=== PATIENT | female | born 1950 | race Caucasian/White ===

== ENCOUNTER → 2016-05-28 | Outpatient (CLI) | payer BC ==
--- NOTE | 2016-05-29 13:58 | MAMMOGRAPHY REPORT ---
BILATERAL DIGITAL SCREENING MAMMOGRAM TOMOSYNTHESIS WITH CAD: 05/28/2016 CLINICAL HISTORY: Routine screening examination. TECHNIQUE: Breast tomosynthesis in addition to standard 2D mammography was performed. Current study was also evaluated with a Computer Aided Detection (CAD) system. COMPARISON: Comparison is made to exams dated: 05/26/2015 mammogram, 03/10/2014 mammogram, 03/09/2013 mammogram, 03/23/2014 mammogram, 03/22/2013 mammogram - [facility], and 05/22/2007. BREAST COMPOSITION: There are scattered areas of fibroglandular density in both breasts. FINDINGS: There are scattered and grouped benign-appearing round and punctate microcode calcificati ons throughout the breasts. Stable nodularity in the anterior subareolar left breast. No new suspi cious mass, architectural distortion or cluster of microcalcifications is seen. IMPRESSION: ACR BI-RADS CATEGORY 1: NEGATIVE There is no mammographic evidence of malignancy. A 1 year screening mammogram is recommended. The p atient will receive written notification of the results. Approximately 10% of breast cancers are not detected with mammography. A negative mammographic repor t should not delay biopsy if a clinically suggestive mass is present. Ximena Black M.D. ay/:05/28/2016 16:30:47 Shooter'S Helper: Sarah ALANIZ)(Didier), [facility] letter sent: Normal 1/2 BI-RADS Code: ACR BI-RADS Category 1: Negative
== END | disposition home or self-care (01) ==
LOC: C.MAMM 15:22
PROVIDERS: ATTEND Family Medicine
DX: Z12.31 Encounter for screening mammogram for malignant neoplasm of breast (principal)

== ENCOUNTER → 2017-06-23 | Outpatient (CLI) | payer OTHER ==
--- NOTE | 2017-06-24 13:28 | MAMMOGRAPHY REPORT ---
BILATERAL DIGITAL SCREENING MAMMOGRAM TOMOSYNTHESIS WITH CAD: 06/23/2017 CLINICAL HISTORY: Routine screening. TECHNIQUE: Breast tomosynthesis in addition to standard 2D mammography was performed. Current study was also evaluated with a Computer Aided Detection (CAD) system. COMPARISON: Comparison is made to exams dated: 05/28/2016 mammogram, 05/26/2015 mammogram, 10/26/2014 ma mmogram, 03/10/2014 mammogram, 03/09/2013 mammogram - [facility], and 05/22/2007. BREAST COMPOSITION: There are scattered areas of fibroglandular density in both breasts. FINDINGS: There is a 6 mm focal asymmetry with possible associated architectural distortion in the u pper outer posterior right breast, for which additional spot compression tomosynthesis views and poss ible ultrasound is recommended. There is stable nodularity in the anterior aspect of each breast and scattered benign-appearing calci fications bilaterally. No other suspicious mass, architectural distortion or cluster of microcalcifications is seen. IMPRESSION: ACR BI-RADS CATEGORY 0: INCOMPLETE EVALUATION: NEED ADDITIONAL IMAGING EVALUATION The 6 mm focal asymmetry with possible associated architectural distortion in the upper outer posteri or right breast needs additional evaluation. The patient will be called to schedule an appointment. Approximately 10% of breast cancers are not detected with mammography. A negative mammographic report should not delay biopsy if a clinically suggestive mass is present. Ximena Black M.D. ay/:06/23/2017 16:49:41 Plastics Design Engineer: Malorie GARY(Eben)(Didier), [facility] letter sent: Addl Imaging 0 BI-RADS Code: ACR BI-RADS Category 0: Incomplete Evaluation: Need Additional Imaging Evaluation
== END | disposition home or self-care (01) ==
LOC: C.MAMM 14:57
PROVIDERS: ATTEND Family Medicine
DX: Z12.31 Encounter for screening mammogram for malignant neoplasm of breast (principal); N64.89 Other specified disorders of breast

== ENCOUNTER → 2017-06-30 | Outpatient (CLI) | payer OTHER ==
--- NOTE | 2017-06-30 15:20 | MAMMOGRAPHY REPORT ---
UNILATERAL RIGHT DIGITAL DIAGNOSTIC MAMMOGRAM TOMOSYNTHESIS AND TARGETED RIGHT ULTRASOUND: 06/30/2017 CLINICAL HISTORY: 67-year-old woman called back from screening mammography for a 6 mm focal asymmetry in the upper outer posterior right breast. Strong family history of breast cancer = sister, mother, maternal aunt, maternal grandmother. TECHNIQUE: Spot compression right CC and MLO 2-D and tomosynthesis images were obtained. COMPARISON: Comparison is made to exams dated: 06/23/2017 mammogram, 05/28/2016 mammogram, 05/26/2015 guerda mogram, 10/26/2014 mammogram, 03/23/2014 ultrasound, and 03/23/2014 mammogram - [facility]. BREAST COMPOSITION: There are scattered areas of fibroglandular density in the right breast. FINDINGS: The additional spot compression tomosynthesis views of the right breast demonstrate a pers istent subtle mixed density focal asymmetry measuring 7 x 5 x 5 mm in the upper outer posterior right breast. Possible associated architectural distortion on the spot compression MLO view. No associat ed microcalcification. Further characterization with ultrasound was performed. Targeted ultrasound was performed in the right upper outer quadrant. In the 10:00 axis approximately 10 cm from the nipple, there is a subtle textural difference in the tissues that is mixed echogenici ty both hyper and hypoechoic with possible posterior shadowing. Accurate ultrasound measurements are difficult to obtain given the indistinct nature of this lesion but it measures approximately 5.2 mm. This is thought to correlate with the focal mammographic asymmetry and is indeterminate. Definitiv e characterization with an ultrasound-guided core biopsy is recommended. IMPRESSION: ACR BI-RADS CATEGORY 4: SUSPICIOUS, TARGETED ULTRASOUND ACR BI-RADS CATEGORY 4: SUSPICIO US 1. Ultrasound guided core biopsy is recommended for a subtle mixed echogenicity 5 mm mass in the 10: 00 right breast, 10 cm from the nipple, which correlates with the mammographic finding. These results and recommendations were discussed with the patient at the time of the exam. She tenta tively scheduled the biopsy prior to leaving our department. Approximately 10% of breast cancers are not detected with mammography. A negative mammographic report should not delay biopsy if a clinically suggestive mass is present. Ximena Black M.D. ay/:06/30/2017 14:53:26 Production Gear Cutter: Christine Huerta [facility] letter sent: Abnormal 08/21 BI-RADS Code: ACR BI-RADS Category 4: Suspicious Ultrasound BI-RADS: ACR BI-RADS Category 4: Suspici ous
== END | disposition home or self-care (01) ==
LOC: C.MAMM 14:01
PROVIDERS: ATTEND Family Medicine
DX: N63.10 Unspecified lump in the right breast, unspecified quadrant (principal)

== ENCOUNTER → 2017-07-07 | Outpatient (CLI) | payer OTHER ==
--- NOTE | 2017-07-07 13:41 | Discharge Instructions ---
Discharge Instructions Procedure Procedure Date: Jul 07, 2017. Reason for visit: Right Breast Mass. Discharge Discharge Date: Jul 07, 2017. Discharge Diagnosis: post right breast ultrasound guided core biopsy Instructions Activity Recommendations: Additional Limitations (see below) Return to School/Work: no limitations Recommended Home Diet: No Limitations Provider Instructions: ACTIVITY RECOMMENDATIONS: * No lifting, pushing, pulling or exercising the affected side for three days. RETURN TO SCHOOL/WORK: * You may return to work/school after the procedure, but do not perform any strenuous activities for 24 to 48 hours. MEDICATIONS: * Tylenol (two 325 mg) every four to six hours if needed for mild pain (if not allergic to Tylenol). DIET: * Resume previous diet. SPECIAL CARE INSTRUCTIONS: * Keep biopsy site dry for 24 hours. May shower after 24 hours, but do not soak (bathe) incision. * May remove Tegaderm (plastic patch) tomorrow AFTER showering. * Leave the steri-strips on for one week. Allow the steri-strips to fall off by themselves. If not off after one week, you may remove them. You may place a Bandaid crosswise over the strips, if desired. * Apply ice 10 minutes on and 10 minutes off as needed. * Wear a bra at bedtime to sleep more comfortably for 2-3 days. * Your referring physician should have the results after approximately 5 to 7 business days. * Call for unusual bleeding, fever, drainage, etc or if you have any questions call [phone] during normal business hours or after hours call Dr Black, . FOLLOW UP VISIT: Follow-up with Referring Physician as scheduled. [facility] Recommendations: Call your doctor if: * Temperature above 101 degrees * Pain not relieved by pain medicine ordered * There is increased drainage or redness from any incision * You have any unanswered questions or concerns. Your Doctors Instructions noted above were prepared by provider Ximena Black. Patient Signature Section: Patient Instructions Signature Page Hannah Guallpabin Patient (or Guardian) Signature/Date: I have read and understand the instructions given to me by my caregivers. Caregiver/RN/Doctor Signature/Date: The above-named patient and/or guardian has received patient instructions on this date. + Original Patient Signature Page (only) stays with chart. Please make copy for patient.
--- NOTE | 2017-07-07 14:51 | MAMMOGRAPHY REPORT ---
UNILATERAL RIGHT DIGITAL DIAGNOSTIC MAMMOGRAM TOMOSYNTHESIS: 07/07/2017 CLINICAL HISTORY: Status post ultrasound-guided core biopsy of a subtle mixed echogenicity 5 mm mass in the 10:00 right breast. Please refer to the report from right breast ultrasound-guided core biopsy performed at the same time for full detail. IMPRESSION: POST PROCEDURE IMAGING FOR MARKER PLACEMENT Please refer to the report from right breast ultrasound-guided core biopsy performed at the same time for full detail. Approximately 10% of breast cancers are not detected with mammography. A negative mammographic report should not delay biopsy if a clinically suggestive mass is present. Ximena Black M.D. ay/:07/07/2017 13:40:28 Repairer Kiln Car: Radhika ALANIZ)(M), [facility] BI-RADS Code: Post Procedure Imaging For Marker Placement
--- NOTE | 2017-07-08 15:25 | MAMMOGRAPHY REPORT ---
THIS REPORT HAS BEEN AMENDED. ULTRASOUND GUIDED BIOPSY RIGHT BREAST: 07/07/2017 CLINICAL HISTORY: Small subtle 5 mm focal asymmetry in the upper outer posterior right breast seen on recent screening mammogram, with possible sonographic correlate identified in the 10:00 right breast . Patient presents for ultrasound-guided core needle biopsy. COMPARISON: Comparison is made to exams dated: 06/30/2017 ultrasound, 06/30/2017 mammogram, 06/23/2017 m ammogram, 05/28/2016 mammogram, 05/26/2015 mammogram, and 03/10/2014 mammogram - [facility] enter. PATIENT CONSENT: The procedure, risks and benefits were discussed with the patient and informed conse nt was obtained both verbally and in writing. Specific risks to this procedure include: bleeding, in fection, puncture of adjacent structure, nontarget biopsy, sampling error, pain, metal allergy and me dication reaction. PROCEDURE DESCRIPTION: A time out was performed and the right breast was agreed as the site of biopsy . The skin was prepped and draped in the usual sterile fashion. The subtle mixed echogenicity 5 mm ma ss in the 10:00 right breast was chosen as the target for biopsy. Subcutaneous and intraparenchymal 1 % buffered lidocaine, with and without epinephrine, was administered as local anesthesia. A skin inci paulino was made. Through the incision, 5 samples were taken with a 14 gauge Achieve biopsy device. A r ibbon shaped metallic marker was placed at the biopsy site. Hemostasis was achieved after manual comp ression. The patient tolerated the procedure well and there was no immediate complication. The sampl es were sent to the pathology department in an appropriately labeled container. Postprocedure right CC and ML tomosynthesis images were obtained. A new ribbon-shaped biopsy marker clip is identified in the upper outer posterior right breast, aligning with the focal asymmetry in qu estion, confirming mammographicsonographic correlation. No significant postbiopsy hematoma. IMPRESSION: ULTRASOUND GUIDED BIOPSY Status post ultrasound-guided core biopsy of a 5 mm focal asymmetry in the upper outer posterior righ t breast, with biopsy marker clip placed at the site. The patient will receive notification of the biopsy results from her referring physician. Ximena Black M.D. ay/:07/07/2017 15:00:39 Paintings Restorer: Radhika ALANIZ)(Didier), [facility] AMENDMENT: 07/09/2017 Ximena Black M.D. Pathology results from the subtle 5 mm mixed echogenicity mass in the right 10:00 breast yielded infi ltrative duct adenocarcinoma, Cande grade 1 of 3. Estrogen and progesterone receptor positive, HER-2/cash negative. The pathology results are concordant with the imaging appearance and giving the malignant pathology, surgical consultation for excision is recommended. However, prior to definitive treatment, consider further characterization with a breast MRI, given th e subtle nature of the patient's biopsy proven carcinoma and somewhat nodular appearance of the remai nder of the parenchyma.
== END | disposition home or self-care (01) ==
LOC: C.MAMM 13:01
PROVIDERS: ATTEND Family Medicine
DX: R92.8 Other abnormal and inconclusive findings on diagnostic imaging of breast (principal); N63.10 Unspecified lump in the right breast, unspecified quadrant; C50.911 Malignant neoplasm of unspecified site of right female breast

== ENCOUNTER → 2017-12-24 | Outpatient (CLI) | payer OTHER ==
[~2017-12-24] MED LIST: ANAS1TAB7 PO; BUPR-79 PO; BUPRTAB51 PO; CHOL1000 PO; COEN75CA PO; LORA-741 PO; ROSUVASTATIN; ZOLP5TAB6 PO
[2017-12-24 15:05] VITALS: BP 105/71; PULSE 84; TEMP 36.9; O2SAT 97
--- NOTE | 2017-12-24 15:58 | Radiation Oncology Follow-Up ---
Radiation Oncology Follow-Up Date of Visit Dec 24, 2017. Reason For Visit One-month follow-up in cancer survivorship care plan Radiation Completion Date Hypofractionation 11/26/17 Diagnosis (1) Malignant neoplasm of upper-outer quadrant of right breast in female, estrogen receptor positive Status: Acute Onset Date: 07/07/2017 Histology Subtype: Invasive carcinoma Stage: l (A) Permanent Comment: Abnormal right breast mammogram Status post ultrasound-guided core needle biopsy July 07, 2017 Invasive carcinoma grade 1 Estrogen receptor positive, progesterone receptor positive, HER-2/cash negative Repeat biopsy August 15, 2017 Ductal hyperplasia Status post bilateral oncoplastic breast reduction with right partial mastectomy and sentinel lymph node biopsy September 22, 2017 Invasive carcinoma no specific type, ductal if not otherwise specified Stage pT1b pN0 Oncotype DX score of 14 Genetic testing negative Status post completion of radiation therapy November 26, 2017. She received 5130 centigrade utilizing hypo-fractionation. Last Edited By: Poornima Lew on Dec 24, 2017 15:49 History of Present Illness Ms. Cazares presented with an abnormal mammogram. 06/23/2017 --- bilateral screening mammograms --- The 6 mm focal asymmetry with possible associated architectural distortion in the upper outer posterior right breast needs additional evaluation. 06/30/2017 --- unilateral right digital diagnostic mammogram and targeted right ultrasound --- 1. Ultrasound guided core biopsy is recommended for a subtle mixed echogenicity 5 mm mass in the 10:00 right breast, 10 cm from the nipple, which correlates with the mammographic finding. 07/07/2017 --- breast, right, 10:00 lesion, ultrasound-guided core biopsy --- invasive ductal adenocarcinoma, grade 1. No lymphovascular space invasion noted. Estrogen receptor positive, progesterone receptor positive and HER-2 negative. 07/22/2017 --- genetic studies for risk assessment including BRCA1 and BRCA2 --- results are negative for BRCA1 and BRCA2. 08/04/2017 --- bilateral MRIs of breast --- finding 1: Irregular mass in the right breast is a known malignancy. Appropriate action should be taken. Finding 2: Anemia me at 10:00 region of the right breast at middle depth is suspicious. MR guided biopsy is recommended. Histology using core biopsy is recommended. Finding 3: Irregular mass in the central left breast for which an MRI guided biopsy is recommended. Histology using core biopsy is recommended. Finding 4: Oval mass in the left breast is probably benign. Follow-up in 6 months is recommended. Oval mass in the left outer quadrant of the left breast may be a lymph node. MR directed ultrasound is recommended. If ultrasound is negative, follow-up MRI is recommended. 08/15/2017 --- biopsy of left breast and biopsy of right breast based on MRI findings --- both biopsies of left breast and right breast are negative for carcinoma and only revealed fibrocystic changes with usual ductal hyperplasia and apocrine metaplasia in the left breast. 09/22/2017 --- right breast lumpectomy and sentinel lymph node biopsy followed by bilateral breast mammoplasty by Dr. London and and Dr. Galindo --- lumpectomy reveals invasive ductal carcinoma that measures 7 mm in greatest dimension, grade 1, no LVSI. Margins are uninvolved by invasive carcinoma; superior margin was initially 1 mm however was reexcised during the operation and negative subsequently. No DCIS specimen. [place] lymph node biopsy revealed 3 lymph nodes which were negative for metastatic carcinoma. pT1bN0(sn). 10/01/2017 --- Oncotype DX --- recurrence score result 14, low risk. 10/07/2017 --- radiation oncology consultation with Dr. Selin Murillo --- Dr. Murillo has referred the patient for consideration of radiation therapy closer to her home in [place], [place]. Patient has also initially been seen by Dr. Mendoza and will follow up with him regarding the role of hormonal therapy and systemic therapy. We are now seeing the patient in consultation discuss role of adjuvant radiation therapy. Interim History She has been doing well over the past month. The irritation of the skin steadily improved. She continues to have some mild swelling of the nipple. She has occasional mild discomfort. She is noted no masses or changes of the axilla. She has had no swelling of her arm. She is on anastrozole. She did not verbalize any issues with the medication. She was wondering if she could go back to her massage therapist. She was concerned about lying in the prone position and causing discomfort or irritation to the treated breast. Allergies Coded Allergies: Penicillins (Verified Allergy, Unknown, doesn't know, 10/23/17) Escitalopram (Verified Adverse Reaction, Unknown, I felt rotten on it, 10/23) Uncoded Allergies: blue cheese (Allergy, Mild, mouth itch, 10/23/17) Home Medications Scheduled Anastrozole (Anastrozole), 1 TAB PO DAILY Bupropion (Wellbutrin Sr), 150 MG PO DAILY Bupropion (Wellbutrin-Xl), 300 MG PO DAILY Cholecalciferol (Vitamin D3), 1 TAB PO DAILY Coenzyme Q10 (Ubidecarenone) (Co Q-10), 1 CAP PO DAILY Lorazepam (Ativan), 0.5 MG PO Q6H [Rouvestatin], DAILY Scheduled PRN Zolpidem Tartrate (Zolpidem Tartrate), 1 TAB PO HS PRN for Sleep Review of Systems Gastrointestinal: Symptoms: WNL Oral: Symptoms: No Problems Respiratory: Symptoms: WNL Urinary: Symptoms: WNL Skin: Symptoms: No Problems Breast: Right Upper Arm Measurement: 31.5 Right Mid Arm Measurement: 26.8 Right Wrist Measurement: 17.0 Left Upper Arm Measurement: 33.0 Left Mid Arm Measurement: 26.3 Left Wrist Measurement: 17.0 Arm Dominence: Right Additional Notes: She completed a distress management report and answer "no" to all questions other than concerns about medical treatment choices. Physical Exam Vital Signs Date Time Temp Pulse Resp B/P (MAP) Pulse Ox O2 Delivery O2 Flow Rate FiO2 12/24/17 15:05 36.9 84 16 105/71 97 ECOG Performance Status: 0 General Appearance: no apparent distress Eyes: normal inspection, EOMI ENT: normal ENT inspection, hearing grossly normal Respiratory/Chest: lungs clear, no respiratory distress, no accessory muscle use Breast: Breast examination reveals bilateral well-healed incisions. There are no masses or tenderness and no axillary adenopathy. There is slight hyperpigmentation of the lower quadrants of the right breast. There is mild swelling of the nipple. There are no areas of tenderness. There is no nipple discharge. She has no skin retractions. The breasts are symmetric. Using the [place] score cosmesis she has a good outcome. Cardiovascular: regular rate, rhythm, no gallop, no murmur Extremities: no pedal edema Neurologic/Psychiatric: no motor/sensory deficits, alert, normal mood/affect Skin: warm/dry Pain Management Patient Reports Pain: No Initial Pain Intensity: 0.0 Pain Management Plan She denies pain therefore requires no pain management. Laboratory Laboratory Results: not applicable Pathology Pathology Results: were reviewed, and pertinent findings noted in HPI Imaging Imaging Studies: not applicable Assessment & Plan Plan: She is also seen and examined by Dr. Santos. She has a recheck visit with Dr. London June 19, 2018. She will also have a mammogram on that day. Today we completed a cancer survivorship care plan. A copy of the document was given to the patient. She was given a survivorship booklet. She expressed a good understanding of late side effects of treatment. We discussed massage therapy. Recommended that if she proceeds with having massage to be best if this was done with her in a chair rather than on a massage table. I also reviewed with her that once the mild nipple swelling has resolved this is a good sign that she could return to regular activity of using the table rather than share for massage therapy. We also discussed lymphedema in the use of sleeve when traveling. She can notify us should she decide to be referred for lymphedema prevention. We asked her to return to our office in 6 months. She may call if she has any questions or concerns in the interim. Assessment & Plan (Attending) I agree with note created by Poornima Lew PA-C. I reviewed the patient's chart and information with her. I have examined and evaluated the patient. I reviewed relevant clinical information and answered the patient's and/or family' s questions. AUTOMOTIVE PRODUCTION WORKER Total Time In Follow-Up I spent 20 minutes speaking to the patient in performing examination. I spent 20 minutes reviewing information, preparing the survivorship document, and completing this note. [place] Total Time (Attending) In Follow-Up I spent 15 minutes examining and counseling the patient. AUTOMOTIVE PRODUCTION WORKER Copy To Yusuf Alcantar M.D.; Jason Mendoza MD; Noni Hills M.D.; Krys London M.D.
== END | disposition home or self-care (01) ==
LOC: C.ONC 14:58
PROVIDERS: ATTEND Physician Assistant Medical
DX: Z08 Encounter for follow-up examination after completed treatment for malignant neoplasm (principal); Z92.3 Personal history of irradiation; Z85.3 Personal history of malignant neoplasm of breast